=== PATIENT | female | born 1985 | race Two or more races ===

== ENCOUNTER 2017-10-19 05:42 | Inpatient (IN) | payer OTHER ==
[2017-10-19] MEDS ORDERED: EPSOM SALT 454 GM TP PRN (06:38)
[2017-10-19] MEDS ORDERED: MISOPROSTOL 200 MCG TAB PR PRN (06:38)
[2017-10-19] MEDS ORDERED: OXYTOCIN/RINGERS LACTATE 1,000 ML IV PRN (06:38)
[2017-10-19] MEDS ORDERED: OLIVE OIL 118 ML BTL MISC PRN (06:38)
[2017-10-19] MEDS ORDERED: IBUPROFEN 600 MG TAB PO PRN (06:38)
[2017-10-19] MEDS ORDERED: LR 1,000 ML IV PRN (06:38)
[2017-10-19] MEDS ORDERED: LIDOCAINE 1% 300 MG/30 ML SDV SC PRN (06:38)
[2017-10-19] MEDS ORDERED: TERBUTALINE SULFATE 1 MG/ML VIAL IV PRN (06:38)
[2017-10-19 06:59] LABS: PLATELET COUNT 202 10^3/uL (150-400)
[2017-10-19] MEDS ORDERED: LIDOCAINE 1% 300 MG/30 ML SDV ONE (07:47)
[2017-10-19] MEDS ORDERED: OLIVE OIL 118 ML BTL ONE (07:47)
[2017-10-19] MEDS ORDERED: AMMONIA AROMATIC 1 EACH AMP IH ONE (07:48)
[2017-10-19] MEDS ORDERED: MISOPROSTOL 200 MCG TAB ONE (07:48)
[2017-10-19] MEDS ORDERED: TERBUTALINE SULFATE 1 MG/ML VIAL ONE (07:48)
[2017-10-19] MEDS ORDERED: OXYTOCIN 10 UNIT/ML VIAL ONE (07:48)
--- NOTE | 2017-10-19 08:24 | PDGENHP ---
History and Physical History and Physical: CARE: [facility] HPI: Patient is a [id number] with IUP@40-6wks that presents to L&D for IOL. Li Balloon was placed 10/18/17, pt states she started lizbeth @0345. She denies any LOF, VB. Reports +FM. EDC: 10/13/17 which is based on LMP: 01/06/17 which is known and consistent with Ultrasound at 7 weeks. Her is complicated by: none Review of Systems: Constitutional: Denies any fever, chills, or fatigue HEENT: denies any visual changes, difficulty swallowing, hearing loss Cardiovascular: Denies any chest pain, palpitations, leg swelling Respiratory: denies any cough, wheezing, or shortness of breathe GI: Denies any nausea, vomiting, diarrhea, constipation : denies any dysuria, urgency, frequency, vaginal bleeding Musculoskeletal: denies any muscle or bone pain Skin: denies any rashes Neuro: denies any headache, seizures, lightheadedness, dizziness, or loss of consciousness Psychiatric: denies any depression, anxiety, or SI/HI thoughts HISTORY: Previous OB history: G1 Past medical history: noncontributory Past surgical history: none Medications: PNV Allergies (list reaction): NKDA LABS: Rh: O+ ABS: Neg Rubella: Immune HbsAg: NR HIV: NR VDRL: NR 1hr: 66 GC: Neg Chlamydia: Neg Pap: Normal GBS: negative BMI: (prepreg) 25 PHYSICAL EXAM: Constitutional: WN, A&Ox3 HEENT: normocephalic atraumatic, supple Heart: RRR, no murmur Chest: CTA-B Abdomen: Soft, nontender, gravid SVE: 450/-2 Extremities: trace edema, negative homans sign Neuro: grossly normal Psych: normal affect assessment: Reassuring FHTs, baseline 130 +accels, no decels, moderate variability Contractions: toco q 4-5min Assessment: 1) [id number] with IUP@40-6wks 2) PD IOL 3) GBS negative 4) Cat 1 FHR tracing Plan: 1) Admit to L&D 2) pitocin PRN 3) pain management PRN 4) anticipate
[2017-10-19] MEDS ORDERED: PHENYLEPHRINE HCL 100 MCG/ML SYR ONE (09:10)
[2017-10-19] MEDS ORDERED: BUPIVACAINE 0.25% 30 ML SDV ONE (09:10)
[2017-10-19] MEDS ORDERED: fentaNYL 100 MCG/2 ML INJ ONE (09:11)
[2017-10-19] MEDS ORDERED: fentaNYL 200 MCG, BUPIVACAINE 0.5% 20 ML in NS 100 ML EP SCH (09:30)
[2017-10-19] MEDS ORDERED: PHENYLEPHRINE HCL 100 MCG/ML SYR IVP PRN (11:09)
--- NOTE | 2017-10-19 11:11 | POSTANESTH ---
Post Anesthetic Evaluation Cardiovascular Status: Normal, Stable (BP stable after phenylephrine.), Similar to Pre-Op Cond Respiratory Status: Normal, Stable, Similar to Pre-op Cond. Level of Consciousness/Mental Status: Can Participate in Eval, Alert and Oriented Pain Control: Adequate, Prn Tx Ordered Nausea/Vomiting Control: Adequate, Prn Tx Ordered Complications Possibly Related to Anesthesia: None Noted
--- NOTE | 2017-10-19 11:15 | PREANESOB ---
Obstetric Pre-Anesthesia Info - General Info Proposed Procedure: Labor and delivery. : 1 Para: 0 ANTONIA: 10/13/17 Gestational Age: 40 week(s) and 6 day(s) - Info Status: Postmature Monitors: External FHR Baseline (bpm): 125 FHR Pattern: Reassuring - Labor Status Cervical Dilation per last OB SVE: 5 Indications for Labor Analgesia: Pain Control Labor Epidural: Proposed Anesthesia ROS: Negative. Allergies/Adverse Reactions: Allergy/AdvReac Type Severity Reaction Status Date / Time No Known Allergies Allergy Unverified 10/19/17 06:29 Visit Medications: Generic Name Dose Route Start Last Admin Trade Name Freq PRN Reason Stop Dose Admin Diphenhydramine HCl 25 - 50 mg 10/19/17 11:09 Benadryl Injection IVP 04/17/18 11:08 Q6HRS PRN Itching Lactated Ringer's 1,000 mls @ 0 mls/hr 10/19/17 06:38 Lr IV 10/20/17 06:37 PRN PRN SEE PROTOCOL CONDITIONS Protocol Per Protocol Oxytocin/Lactated Ringer's 1,000 mls @ 125 mls/hr 10/19/17 06:38 Pitocin 20 Units/Lr (Premix) IV PRN PRN Post bleeding Fentanyl 200 mcg/ Bupivacaine 100 mls @ 0 mls/hr 10/19/17 09:30 HCl 20 ml/ Sodium Chloride EP 10/29/17 09:29 CONT [facility] Protocol As Directed Fentanyl/Bupivacaine HCl 100 mls @ 0 mls/hr 10/19/17 11:30 Fentanyl/Bupivacaine/Ns 2 Mcg/Ml 0.1% (Premix EP 10/29/17 11:29 CONT JESU Protocol As Directed Lactated Ringer's 500 mls @ 0 mls/hr 10/19/17 11:30 Lr IV 04/17/18 11:29 CONT JESU As Directed Ibuprofen 600 mg 10/19/17 06:38 Motrin PO ONCE PRN post , pain Lidocaine HCl 300 mg 10/19/17 06:38 Lidocaine Hcl 1% SC 04/17/18 06:37 ONCE PRN episiotomy Magnesium Sulfate 454 gm 10/19/17 06:38 Epsom Salt TP 04/17/18 06:37 Q1H PRN perineal discomfort Misoprostol 800 - 1,000 mcg 10/19/17 06:38 Cytotec PA ONCE PRN Vaginal Atony/Bleeding Rolfe Oil 118 ml 10/19/17 06:38 Sweet Oil MISC 04/17/18 06:37 ONCE PRN perineal massage Ondansetron HCl 4 mg 10/19/17 11:09 Zofran IVP 10/20/17 11:08 Q4HRS PRN Nausea/Vomiting, Can't Take PO Phenylephrine HCl 100 mcg 10/19/17 11:09 Neosynephrine IVP 04/17/18 11:08 .Q2M PRN Hypotension Terbutaline Sulfate 0.25 mg 10/19/17 06:38 Brethine IV 04/17/18 06:37 ONCE PRN Tachysystole Discontinued Medications Generic Name Dose Route Start Last Admin Trade Name Freq PRN Reason Stop Dose Admin Ammonia (Aromatic Spirit) Confirm 10/19/17 07:48 Ammonia Aromatic Administered 10/19/17 07:49 Dose 1 each IH .STK-MED ONE Bupivacaine HCl Confirm 10/19/17 09:10 Sensorcaine 0.25% Sdv Administered 10/19/17 09:11 Dose 30 ml .ROUTE .STK-MED ONE Fentanyl Confirm 10/19/17 09:11 Sublimaze Administered 10/19/17 09:12 Dose 100 mcg .ROUTE .STK-MED ONE Lidocaine HCl Confirm 10/19/17 07:47 Lidocaine Hcl 1% Administered 10/19/17 07:48 Dose 300 mg .ROUTE .STK-MED ONE Misoprostol Confirm 10/19/17 07:48 Cytotec Administered 10/19/17 07:49 Dose 1,000 mcg .ROUTE .STK-MED ONE Rolfe Oil Confirm 10/19/17 07:47 Sweet Oil Administered 10/19/17 07:48 Dose 118 ml .ROUTE .STK-MED ONE Oxytocin Confirm 10/19/17 07:48 Pitocin Administered 10/19/17 07:49 Dose 40 unit .ROUTE .STK-MED ONE Phenylephrine HCl Confirm 10/19/17 09:10 Neosynephrine Administered 10/19/17 09:11 Dose 1,000 mcg .ROUTE .STK-MED ONE Terbutaline Sulfate Confirm 10/19/17 07:48 Brethine Administered 10/19/17 07:49 Dose 1 mg .ROUTE .STK-MED ONE - Anesthesia History Response to Local Anesthetics: Normal Anesthesia & Operative History: No Prior Problems Family Anesthesia History: Negative - Social History Substance Use/Abuse: Denies - Vital Signs Blood Pressure: 116/77 Heart Rate: 82 Height/Weight (Nursing): Height 157.48 cm Weight 72.575 kg - Focused Exam Neck exam: FROM Mallampati Score: Class 1 Mouth exam: normal dental/mouth exam Pulmonary: no respiratory distress Cardiovascular: regular rate and rhythym Labs: 10/19/17 06:45 Patient ABO/Rh O POSITIVE 10/19/17 06:45 - Plan Anesthetic Plan: CEDRICK Consent Signed and on Chart: Yes Patient/Guardian Understands and Agrees to Plan: Yes Urgent/Emergent Case: Gina kong completed preop but documented later for safe timely pt care
[2017-10-19] MEDS ORDERED: fentaNYL 2MCG/ML/BUP 0.1% RTU 100 ML EP SCH (11:30)
[2017-10-19] MEDS ORDERED: LR 500 ML IV SCH (11:30)
[2017-10-19] MEDS ORDERED: LR 500 ML IV PRN (12:44)
[2017-10-19] MEDS ORDERED: OXYTOCIN/RINGERS LACTATE 500 ML IV SCH (13:00)
[2017-10-19] MEDS ORDERED: D5W LR 1,000 ML IV SCH (13:45)
--- NOTE | 2017-10-19 13:47 | OBPROG ---
Labor Progress Note Assessment/Plan: Assessment: [id number] with IUP@40-6wks GBS Negative IOL cat 1 FHR Tracing Plan: cont pit PRN reassess 2-4hr/PRN anticipate 10/19/17 13:45 Subjective/Intrapartum Course: 10/19/17 13:46 Pt doing well, she denies any pain. She is comfortable with CEDRICK. SONIDO Jonas, at BS and supportive. Objective: 10/19/17 06:45 Patient ABO/Rh O POSITIVE 10/19/17 06:45 Temp Pulse Resp BP Pulse Ox 82 116/77 10/19/17 11:25 10/19/17 11:25 - SVE Dilation (cm): 6 Effacement (%): 50 Station: -2 Membranes: SROM Amniotic Fluid Color: Clear - Contraction Pattern Assessment Current Contraction Pattern: Regular - FHR Assessment Ferrer FHR Category: 1 Oxytocin Orders Assessment - Pre-Induction/Augmentation Assessment Gestational Age: 40 week(s) and 6 day(s) ICD10 Worksheet Patient Problems: Problems Problem Status Onset Encounter for induction of labor Acute Post-dates Acute - ICD10 Problem Qualifiers (1) Post-dates (2) Encounter for induction of labor
[2017-10-19] MEDS: ONDANSETRON 4 MG/2 ML VIAL IVP PRN ×2 (14:32→20:38)
--- NOTE | 2017-10-19 18:38 | OBPROG ---
Labor Progress Note Assessment/Plan: Assessment: [id number] with IUP@40-6wks GBS Negative IOL cat 1 FHR Tracing Plan: start pitocin PRN reassess 2-4hr/PRN anticipate Subjective/Intrapartum Course: 10/19/17 11:15 Pt doing well, comfortable with CEDRICK. She denies any pain or pressure. Pritesh @ BS - supportive. 10/19/17 13:46 Pt doing well, she denies any pain. She is comfortable with CEDRICK. SONIDO Jonas, at BS and supportive. Objective: 10/19/17 06:45 Patient ABO/Rh O POSITIVE 10/19/17 06:45 Temp Pulse Resp BP Pulse Ox 82 116/77 10/19/17 11:25 10/19/17 11:25 - SVE Dilation (cm): 5 Effacement (%): 50 Station: -2 Membranes: SROM Amniotic Fluid Color: Clear - Contraction Pattern Assessment Current Contraction Pattern: Regular - FHR Assessment Ferrer FHR (bpm): 135 FHR Pattern Variability: Moderate FHR Category: 1 Oxytocin Orders Assessment - Pre-Induction/Augmentation Assessment Gestational Age: 40 week(s) and 6 day(s) ICD10 Worksheet Patient Problems: Problems Problem Status Onset Encounter for induction of labor Acute Post-dates Acute - ICD10 Problem Qualifiers (1) Post-dates (2) Encounter for induction of labor
--- NOTE | 2017-10-19 18:42 | OBPROG ---
Labor Progress Note Assessment/Plan: Assessment: [id number] with IUP@40-6wks GBS Negative IOL cat 1 FHR Tracing Plan: continue pitocin augmentation reassess 2-4hr/PRN anticipate Subjective/Intrapartum Course: 10/19/17 11:15 Pt doing well, comfortable with CEDRICK. She denies any pain or pressure. Pritesh @ BS - supportive. 10/19/17 13:46 Pt doing well, she denies any pain. She is comfortable with CEDRICK. SONIDO Jonas, at BS and supportive. 10/19/17 15:30 Pt doing well, having intermittent pain with contractions- will use bolus button. Has been able to rest. Been rotating right and left lateral. Objective: 10/19/17 06:45 Patient ABO/Rh O POSITIVE 10/19/17 06:45 Temp Pulse Resp BP Pulse Ox 82 116/77 10/19/17 11:25 10/19/17 11:25 - SVE Dilation (cm): 7 Effacement (%): 80 Station: -1 Membranes: SROM Amniotic Fluid Color: Clear - Contraction Pattern Assessment Current Contraction Pattern: Regular - FHR Assessment Ferrer FHR (bpm): 135 FHR Pattern Variability: Moderate FHR Category: 1 Oxytocin Orders Assessment - Pre-Induction/Augmentation Assessment Gestational Age: 40 week(s) and 6 day(s) ICD10 Worksheet Patient Problems: Problems Problem Status Onset Encounter for induction of labor Acute Post-dates Acute - ICD10 Problem Qualifiers (1) Post-dates (2) Encounter for induction of labor
--- NOTE | 2017-10-19 18:44 | OBPROG ---
Labor Progress Note Assessment/Plan: Assessment: [id number] with IUP@40-6wks GBS Negative IOL cat 1 FHR Tracing Plan: continue pitocin augmentation reassess 2-4hr/PRN anticipate Subjective/Intrapartum Course: 10/19/17 11:15 Pt doing well, comfortable with CEDRICK. She denies any pain or pressure. Pritesh @ BS - supportive. 10/19/17 13:46 Pt doing well, she denies any pain. She is comfortable with CEDRICK. SONIDO Jonas, at BS and supportive. 10/19/17 15:30 Pt doing well, having intermittent pain with contractions- will use bolus button. Has been able to rest. Been rotating right and left lateral. 10/19/17 18:00 Pt doing well, feels a little discouraged that things are not progressing quicker. She is able to rest. Having occasional vaginal pressure, no rectal pressure. Comfortable after hitting CEDRICK bolus button. Objective: 10/19/17 06:45 Patient ABO/Rh O POSITIVE 10/19/17 06:45 Temp Pulse Resp BP Pulse Ox 82 116/77 10/19/17 11:25 10/19/17 11:25 - SVE Dilation (cm): 9 Effacement (%): 90 Station: -1 Membranes: SROM Amniotic Fluid Color: Clear - Contraction Pattern Assessment Current Contraction Pattern: Regular - FHR Assessment Ferrer FHR (bpm): 135 (variables noted) FHR Pattern Variability: Moderate FHR Category: 2 Oxytocin Orders Assessment - Pre-Induction/Augmentation Assessment Gestational Age: 40 week(s) and 6 day(s) ICD10 Worksheet Patient Problems: Problems Problem Status Onset Encounter for induction of labor Acute Post-dates Acute - ICD10 Problem Qualifiers (1) Post-dates (2) Encounter for induction of labor
--- NOTE | 2017-10-19 20:50 | OBPROG ---
Labor Progress Note Assessment/Plan: Assessment: [id number] with IUP@40-6wks GBS Negative protracted labor cat 1 FHR Tracing Plan: IUPC placed at this time continue pitocin augmentation reassess 2hr/PRN anticipate 10/19/17 20:50 Subjective/Intrapartum Course: 10/19/17 11:15 Pt doing well, comfortable with CEDRICK. She denies any pain or pressure. Pritesh @ BS - supportive. 10/19/17 13:46 Pt doing well, she denies any pain. She is comfortable with CEDRICK. SONIDO Jonas, at BS and supportive. 10/19/17 15:30 Pt doing well, having intermittent pain with contractions- will use bolus button. Has been able to rest. Been rotating right and left lateral. 10/19/17 18:00 Pt doing well, feels a little discouraged that things are not progressing quicker. She is able to rest. Having occasional vaginal pressure, no rectal pressure. Comfortable after hitting CEDRICK bolus button. 10/19/17 20:50 Pt doing ok. feeling lots of back pain. she denies any pressure. Objective: 10/19/17 06:45 Patient ABO/Rh O POSITIVE 10/19/17 06:45 Temp Pulse Resp BP Pulse Ox 82 116/77 10/19/17 11:25 10/19/17 11:25 - SVE Dilation (cm): 9 Effacement (%): 90 Station: -1 Membranes: SROM Amniotic Fluid Color: Clear - Contraction Pattern Assessment Current Contraction Pattern: Regular - FHR Assessment Ferrer FHR (bpm): 135 FHR Pattern Variability: Moderate FHR Category: 1 - Procedures Non-surgical Procedures: IUPC Oxytocin Orders Assessment - Pre-Induction/Augmentation Assessment Gestational Age: 40 week(s) and 6 day(s) ICD10 Worksheet Patient Problems: Problems Problem Status Onset Encounter for induction of labor Acute Post-dates Acute - ICD10 Problem Qualifiers (1) Post-dates (2) Encounter for induction of labor
[2017-10-20] MEDS ORDERED: LIDO/EPI 2% **for epidural** 20 ML SDV ONE (02:27)
[2017-10-20] MEDS ORDERED: LR 500 ML IV ONE (02:27)
[2017-10-20] MEDS ORDERED: ceFAZolin 2 GM/DEXTROSE 100 ML IV ONE (02:27)
[2017-10-20] MEDS ORDERED: CITRIC ACID/SODIUM CITRATE 30 ML UDCUP ONE (02:27)
--- NOTE | 2017-10-20 02:27 | PDCONSULT ---
Rehab Specialist Note: I was consulted by Lorenza Carlton CNM regarding Danitza's protracted 2nd stage of labor. Reviewed course with Lorenza and the patient as well as her . I did have a discussion with them and repeated an exam. Moderate caput at +1/+ 2 but the bones do feel like they're at 0 station. Feels asynclitic and OT. Lorenza had already discussed RBA with them and I reviewed those quickly. Offered that OVD from below an option but I wouldn't recommend vacuum or forceps in this situation. Will proceed with , routine orders. Weight- based Ancef. JM
--- NOTE | 2017-10-20 02:27 | SUROPNOTE ---
[facility] Operative Report - Surgery Date of Operation: 10/20/17 Surgeon: Renaldo Burgess Shot Man: Lorenza Carlton CNM Anesthesiologist: Rubi Nguyen Anesthesia: Epidural Pre-op Diagnosis: Arrest of descent Post-op Diagnosis: Same Procedure: Primary low-transverse section Findings: Vigorous baby boy, grossly normal placenta and cord Inf/Abcess present in the surg proc area at time of surgery?: No EBL: 1300cc Complications: None Specimen(s): Cord blood gasses sent, placenta not sent. Technique:
--- NOTE | 2017-10-20 02:28 | OBDEL ---
Info Type: Primary Presentation at Delivery: Vertex L&D Analgesia/Anesthesia Type: Epidural GBS+: No Intrapartum Medications: Generic Name Dose Route Start Last Admin Trade Name Yulia PRN Reason Stop Dose Admin Fentanyl 200 mcg/ Bupivacaine 100 mls @ 0 mls/hr 10/19/17 09:30 10/20/17 02: 04 HCl 20 ml/ Sodium Chloride EP 10/29/17 09:29 100 mls CONT JESU Administration Protocol As Directed Oxytocin/Lactated Ringer's 500 mls @ 0 mls/hr 10/19/17 13:00 10/19/17 13:26 Pitocin 30 Units/Lr (Premix) IV 04/17/18 12:59 500 mls CONT JESU Administration Protocol Per Protocol Dextrose/Lactated Ringer's 1,000 mls @ 150 mls/hr 10/19/17 13:45 10/19/17 13: 44 D5w Lr IV 04/17/18 13:44 1,000 mls CONT JESU Administration Ondansetron HCl 4 mg 10/19/17 11:09 10/19/17 20:38 Zofran IVP 10/20/17 11:08 4 mg Q4HRS PRN Administration Nausea/Vomiting, Can't Take PO - Hospital Course Intrapartum: 10/19/17 11:15 Pt doing well, comfortable with CEDRICK. She denies any pain or pressure. Pritesh @ BS - supportive. 10/19/17 13:46 Pt doing well, she denies any pain. She is comfortable with CEDRICK. SONIDO Jonas, at BS and supportive. 10/19/17 15:30 Pt doing well, having intermittent pain with contractions- will use bolus button. Has been able to rest. Been rotating right and left lateral. 10/19/17 18:00 Pt doing well, feels a little discouraged that things are not progressing quicker. She is able to rest. Having occasional vaginal pressure, no rectal pressure. Comfortable after hitting CEDRICK bolus button. 10/19/17 20:50 Pt doing ok. feeling lots of back pain. she denies any pressure. Indications for Delivery: Postterm Unfavorable Cervix (Post-dates IOL ) Vaginal Delivery - Labor and Delivery Onset of Contractions Date: 10/19/17 Onset of Contractions Time: 03:30 Amniotic Fluid Color: Clear Non-surgical Procedures: IUPC Operative Report - Delivery Pre-op Diagnoses: Arrest of descent Post-op Diagnoses: Same History of Prior Section: No Nulliparous Prior to Delivery: No Indications for Current Section: Arrest of Descent Procedure: Unscheduled Surgeon: Renaldo Burgess Insole Doubler: Lorenza Carlton Complications: Post Hemorrhage (1300cc, Methergine given into the uterus intraop) Findings: Baby boy, grossly normal placenta and cord, normal tubes and ovaries EBL: 1300cc Cord Gases: Sent [place] Data ANTONIA: 10/13/17 Gestational Age: 41 week(s) and 0 day(s) Ferrer Delivery Date: 10/20/17 Delivery Time: 03:07 Sex of Infant: Male (Jalen) Score (1 Min): 8 Score (5 Min): 9 ICD10 Worksheet Patient Problems: Problems Problem Status Onset Arrest of descent, delivered, current hospitalization Acute Encounter for induction of labor Acute Post-dates Acute S/P primary low transverse Acute - ICD10 Problem Qualifiers (1) Arrest of descent, delivered, current hospitalization (2) S/P primary low transverse
[2017-10-20] MEDS ORDERED: CITRIC ACID/SODIUM CITRATE 30 ML UDCUP PO ONE (02:29)
[2017-10-20] MEDS ORDERED: LR 1,000 ML IV SCH ×2 (02:30→04:30)
--- NOTE | 2017-10-20 02:43 | OBPROG ---
Labor Progress Note Assessment/Plan: Assessment: [id number] with IUP@40-6wks GBS Negative protracted labor cat 1 FHR Tracing Plan: Cont pitocin will labor down, attempt pushing after 1hr notified Dr Burgess of protracted labor and minimal descent with initial pushing Subjective/Intrapartum Course: 10/19/17 11:15 Pt doing well, comfortable with CEDRICK. She denies any pain or pressure. Pritesh @ BS - supportive. 10/19/17 13:46 Pt doing well, she denies any pain. She is comfortable with CEDRICK. Pritesh, SONIDO, at BS and supportive. 10/19/17 15:30 Pt doing well, having intermittent pain with contractions- will use bolus button. Has been able to rest. Been rotating right and left lateral. 10/19/17 18:00 Pt doing well, feels a little discouraged that things are not progressing quicker. She is able to rest. Having occasional vaginal pressure, no rectal pressure. Comfortable after hitting CEDRICK bolus button. 10/19/17 20:50 Pt doing ok. feeling lots of back pain. she denies any pressure. 10/19/17 23:55 Pt doing ok, reports feeling discouraged about progress. She is feeling some pressure in vagina, reports increasing left lower back pain. CEDRICK in place- self bolus given Objective: 10/19/17 06:45 Patient ABO/Rh O POSITIVE 10/19/17 06:45 Temp Pulse Resp BP Pulse Ox 36.8 C 85 16 106/60 98 10/20/17 01:51 10/20/17 01:51 10/20/17 01:51 10/20/17 01:51 10/20/17 01:51 - SVE Dilation (cm): 10 Effacement (%): 100 Station: -1 Membranes: SROM Amniotic Fluid Color: Clear - Contraction Pattern Assessment Current Contraction Pattern: Regular - Procedures Non-surgical Procedures: IUPC Oxytocin Orders Assessment - Pre-Induction/Augmentation Assessment Gestational Age: 40 week(s) and 6 day(s) ICD10 Worksheet Patient Problems: Problems Problem Status Onset Encounter for induction of labor Acute Post-dates Acute - ICD10 Problem Qualifiers (1) Post-dates (2) Encounter for induction of labor
--- NOTE | 2017-10-20 02:46 | OBPROG ---
Labor Progress Note Assessment/Plan: Assessment: [id number] with IUP@40-6wks GBS Negative arrest of descent cat 1 FHR Tracing Plan: Dr Burgess notified of arrest of labor Pt consented on C/S B/R/A pt agrees with plan of care will proceed with C/s at this time 10/20/17 02:15 Subjective/Intrapartum Course: 10/19/17 11:15 Pt doing well, comfortable with CEDRICK. She denies any pain or pressure. Pritesh @ BS - supportive. 10/19/17 13:46 Pt doing well, she denies any pain. She is comfortable with CEDRICK. SONIDO Jonas, at BS and supportive. 10/19/17 15:30 Pt doing well, having intermittent pain with contractions- will use bolus button. Has been able to rest. Been rotating right and left lateral. 10/19/17 18:00 Pt doing well, feels a little discouraged that things are not progressing quicker. She is able to rest. Having occasional vaginal pressure, no rectal pressure. Comfortable after hitting CEDRICK bolus button. 10/19/17 20:50 Pt doing ok. feeling lots of back pain. she denies any pressure. 10/19/17 23:55 Pt doing ok, reports feeling discouraged about progress. She is feeling some pressure in vagina, reports increasing left lower back pain. CEDRICK in place- self bolus given Objective: 10/19/17 06:45 Patient ABO/Rh O POSITIVE 10/19/17 06:45 Temp Pulse Resp BP Pulse Ox 36.8 C 85 16 106/60 98 10/20/17 01:51 10/20/17 01:51 10/20/17 01:51 10/20/17 01:51 10/20/17 01:51 - SVE Dilation (cm): 10 Effacement (%): 100 Station: 0 Membranes: SROM Amniotic Fluid Color: Clear - Contraction Pattern Assessment Current Contraction Pattern: Regular - Procedures Non-surgical Procedures: IUPC Oxytocin Orders Assessment - Pre-Induction/Augmentation Assessment Gestational Age: 40 week(s) and 6 day(s) ICD10 Worksheet Patient Problems: Problems Problem Status Onset Encounter for induction of labor Acute Post-dates Acute - ICD10 Problem Qualifiers (1) Post-dates (2) Encounter for induction of labor
[2017-10-20] MEDS ORDERED: METHYLERGONOVINE MAL 0.2 MG/ML INJ ONE (03:15)
[2017-10-20] MEDS ORDERED: ONDANSETRON 4 MG/2 ML VIAL ONE (03:16)
[2017-10-20] MEDS ORDERED: PHENYLEPHRINE HCL 100 MCG/ML SYR ONE (03:17)
[2017-10-20] MEDS ORDERED: morphINE PF 5 MG/10 ML INJ ONE (03:37)
[2017-10-20] MEDS ORDERED: KETOROLAC 30 MG/1 ML SDV ONE (03:50)
[2017-10-20] MEDS ORDERED: PHENYLEPHRINE HCL 100 MCG/ML SYR IVP PRN (04:02)
[2017-10-20] MEDS ORDERED: OXYCODONE/APAP 5/325 TAB PO PRN (04:02)
[2017-10-20] MEDS ORDERED: NALOXONE HCL 0.4 MG/ML INJ IVP PRN ×2 (04:02)
[2017-10-20] MEDS ORDERED: fentaNYL 100 MCG/2 ML INJ IVP PRN (04:02)
[2017-10-20] MEDS ORDERED: ACETAMINOPHEN 325 MG TAB PO PRN (04:07)
[2017-10-20] MEDS ORDERED: HYDROCODONE/APAP 5/325 TAB PO PRN (04:07)
[2017-10-20] MEDS ORDERED: SIMETHICONE 80 MG TAB CHEW PO PRN (04:07)
[2017-10-20] MEDS ORDERED: DOCUSATE SODIUM 100 MG CAP PO PRN (04:07)
[2017-10-20] MEDS ORDERED: PROMETHAZINE HCL 25 MG/ML INJ IVP PRN (04:07)
--- NOTE | 2017-10-20 04:08 | POSTANESTH ---
Post Anesthetic Evaluation Cardiovascular Status: Tx Over/Under Hydration (Pt needs additional IVF. 1 liter LR bolus ordered for PACU.) Respiratory Status: Normal, Stable Level of Consciousness/Mental Status: Can Participate in Eval, Alert and Oriented Pain Control: Adequate, Prn Tx Ordered Nausea/Vomiting Control: Adequate, Prn Tx Ordered Complications Possibly Related to Anesthesia: Other, See Comments (Pt still shaking, feels tired. Nausea resolved.)
[2017-10-20] MEDS: KETOROLAC 30 MG/1 ML SDV IVP SCH ×3 (16:32→22:29)
--- NOTE | 2017-10-20 17:30 | OBPP ---
Progress Note Assessment/Plan: Assessment: s/p 1LTCS secondary to AOD POD #0.5 - pt is stable Plan: Continue routine post-op care H/H in am 6/10/20/17 17:30 Subjective/ Course: 10/20/17 17:28 Pt seen and examined. Sitting at the side of the bed eating some fruit. Feeling good, pain is well controlled. Denies any f/c/n/v/CP or SOB. Denies any excessive bleeding, no clots. Working on BF. Li in place. Objective: 10/19/17 06:45 Patient ABO/Rh O POSITIVE 10/19/17 06:45 Temp Pulse Resp BP Pulse Ox 37.3 C 83 16 112/74 96 10/20/17 08:00 10/20/17 08:00 10/20/17 08:00 10/20/17 08:00 10/20/17 08:00 Uterine Position/Fundal Height: Umbilicus -1 Uterine Tone: Firm Physical Exam - Physical Exam General Appearance: WD/WN, alert, no apparent distress Respiratory: lungs clear, normal breath sounds Cardiac/Chest: regular rate, rhythm Abdomen: normal bowel sounds, non-tender, soft, incision (C/D/I with dressing in place), dressing (C/D/I) Extremities: non-tender, normal inspection Skin: normal color, warm/dry Neuro/Psych: alert, normal mood/affect, oriented x 3
[2017-10-20] MEDS: IRON POLYSAC/IRON HEME 28 MG TAB PO SCH (22:29)
[2017-10-21] MEDS: KETOROLAC 30 MG/1 ML SDV IVP SCH ×2 (04:25→10:47)
[2017-10-21] MEDS: IRON POLYSAC/IRON HEME 28 MG TAB PO SCH ×2 (09:22→22:32)
--- NOTE | 2017-10-21 10:54 | OBPP ---
Progress Note Assessment/Plan: Assessment: 32 y/o s/p primary - failure to descend. POD #1 Plan: Routine PP/post op care Encourage ambulation 10/21/17 10:54 Subjective/ Course: 10/20/17 17:28 Pt seen and examined. Sitting at the side of the bed eating some fruit. Feeling good, pain is well controlled. Denies any f/c/n/v/CP or SOB. Denies any excessive bleeding, no clots. Working on BF. Li in place. 10/21/17 10:51 Doing well today. going fine. Pain well controlled - tolerating regular diet and ambulating in room. Passing gas. Voiding. Vag bleeding is WNL - no clots. Denies f/c/n/v/CP or SOB. 10/21/17 10:56 Objective: 10/19/17 06:45 Patient ABO/Rh O POSITIVE 10/19/17 06:45 Temp Pulse Resp BP Pulse Ox 36.7 C 89 16 98/56 L 95 10/21/17 00:35 10/21/17 00:35 10/21/17 00:35 10/21/17 00:35 10/21/17 00:35 Uterine Position/Fundal Height: At Umbilicus Uterine Tone: Firm Physical Exam - Physical Exam EENT: PERRL/EOMI Neck: non-tender Respiratory: normal breath sounds Cardiac/Chest: regular rate, rhythm, edema (mod pedal/low ext edema) Abdomen: hypoactive bowel sounds, incision (well approximated - healing well) Extremities: normal range of motion Back: Normal inspection Skin: normal color Neuro/Psych: no motor/sensory deficits, alert, normal mood/affect, oriented x 3
[2017-10-21 12:48] LABS: PLATELET COUNT 181 10^3/uL (150-400)
[2017-10-21] MEDS ORDERED: MAGNESIUM HYDROXIDE 30 ML UDCUP PO PRN (21:44)
[2017-10-21] MEDS ORDERED: POLYETHYLENE GLYCOL 3350 17 GM PKT PO PRN (21:44)
[2017-10-21] MEDS ORDERED: BISACODYL 10 MG SUPP PR PRN (21:44)
[2017-10-21] MEDS: SENNOSIDES/DOCUSATE SODIUM TAB PO SCH (22:32)
[2017-10-22] MEDS: IBUPROFEN 600 MG TAB PO PRN ×4 (00:05→18:40)
[2017-10-22] MEDS: SENNOSIDES/DOCUSATE SODIUM TAB PO SCH ×2 (09:36→21:10)
[2017-10-22] MEDS: IRON POLYSAC/IRON HEME 28 MG TAB PO SCH ×2 (09:36→21:10)
--- NOTE | 2017-10-22 11:40 | OBPP ---
Progress Note Assessment/Plan: Assessment: 1) s/p 1LTCS secondary to AOD POD #2 - pt is stable 2) Anemia - on Bifera, asymptomatic Plan: Continue routine post-op care Encourage ambulation Plan for d/c home in am 10/2310/22/17 11:41 Subjective/ Course: 10/20/17 17:28 Pt seen and examined. Sitting at the side of the bed eating some fruit. Feeling good, pain is well controlled. Denies any f/c/n/v/CP or SOB. Denies any excessive bleeding, no clots. Working on BF. Li in place. 10/21/17 10:51 Doing well today. going fine. Pain well controlled - tolerating regular diet and ambulating in room. Passing gas. Voiding. Vag bleeding is WNL - no clots. Denies f/c/n/v/CP or SOB. 10/22/17 11:41 Pt seen and examined. Doing well, no complaints. Pt just got out of the shower. Pain is well controlled. She is OOB, avinash regular diet, voiding and passing flatus. No BM yet. Mod lochia. Denies any f/c/n/v/CP or SOB. BF is going well. Objective: 10/21/17 12:30 Patient ABO/Rh O POSITIVE 10/19/17 06:45 Temp Pulse Resp BP Pulse Ox 36 C 74 18 113/82 H 95 10/22/17 09:41 10/22/17 09:41 10/21/17 20:10 10/22/17 09:41 10/22/17 09:41 Uterine Position/Fundal Height: Umbilicus -2 Uterine Tone: Firm Physical Exam - Physical Exam General Appearance: WD/WN, alert, no apparent distress Respiratory: lungs clear, normal breath sounds Cardiac/Chest: regular rate, rhythm Abdomen: normal bowel sounds, non-tender, soft, flatus (+), incision (C/D/I, well approximated) Extremities: non-tender, normal inspection Skin: normal color, warm/dry Neuro/Psych: alert, normal mood/affect, oriented x 3
[2017-10-23] MEDS: IBUPROFEN 600 MG TAB PO PRN ×3 (00:41→12:25)
[2017-10-23 11:34] VITALS: BP 101/72
--- NOTE | 2017-10-23 12:20 | OBGCSDC ---
General Delivery Information - General Info : 1 Para: 1 Abortions: 0 Type: Primary L&D Analgesia/Anesthesia Type: Epidural Admission Date: 10/19/17 Labs: Patient ABO/Rh O POSITIVE 10/19/17 06:45 Hct 25.8 % (38.0-47.0) L 10/21/17 12:30 - Hospital Course Intrapartum: 10/19/17 11:15 Pt doing well, comfortable with CEDRICK. She denies any pain or pressure. Pritesh @ BS - supportive. 10/19/17 13:46 Pt doing well, she denies any pain. She is comfortable with CEDRICK. SONIDO Jonas, at BS and supportive. 10/19/17 15:30 Pt doing well, having intermittent pain with contractions- will use bolus button. Has been able to rest. Been rotating right and left lateral. 10/19/17 18:00 Pt doing well, feels a little discouraged that things are not progressing quicker. She is able to rest. Having occasional vaginal pressure, no rectal pressure. Comfortable after hitting CEDRICK bolus button. 10/19/17 20:50 Pt doing ok. feeling lots of back pain. she denies any pressure. : 10/20/17 17:28 Pt seen and examined. Sitting at the side of the bed eating some fruit. Feeling good, pain is well controlled. Denies any f/c/n/v/CP or SOB. Denies any excessive bleeding, no clots. Working on BF. Li in place. 10/21/17 10:51 Doing well today. going fine. Pain well controlled - tolerating regular diet and ambulating in room. Passing gas. Voiding. Vag bleeding is WNL - no clots. Denies f/c/n/v/CP or SOB. 10/22/17 11:41 Pt seen and examined. Doing well, no complaints. Pt just got out of the shower. Pain is well controlled. She is OOB, avinash regular diet, voiding and passing flatus. No BM yet. Mod lochia. Denies any f/c/n/v/CP or SOB. BF is going well. 10/23/17 12:17 Pt is doing well this am. She has good pain control with only Ibuprofen. She is ambulating, voiding without difficulty and has had a + BM. Min lochia, breast feeding well and her nipples are good. She is ready to d/c home. Vaginal - Diagnosis Amniotic Fluid Color: Clear - Procedures Non-surgical Procedures: IUPC - Delivery Providers Surgeon: Renaldo Burgess Repair Servicer: Lorenza Carlton - Delivery Indications for Current Section: Arrest of Descent Non-surgical Procedures: IUPC Surgical Procedures: Unscheduled Intra-op Complications: Post Hemorrhage (1300cc, Methergine given into the uterus intraop) EBL: 1300cc Data ANTONIA: 10/13/17 Gestational Age: 41 week(s) and 3 day(s) Ferrer Delivery Date: 10/20/17 Delivery Time: 03:07 Sex of Infant: Male (Jalen) Weight (gm): 3374 g Score (1 Min): 8 Score (5 Min): 9 Discharge Information - Discharge Information Prescriptions: Hydrocodone/APAP 5/325 [[place] 5/325 (*)] 1 - 2 tab PO Q4HRS PRN #10 tab PRN Reason: Pain, Moderate Ibuprofen [Motrin (*)] 600 mg PO Q6HRS PRN #30 tab PRN Reason: Pain, Mild Iron Polysacch/Iron Heme Polyp [Bifera] 28 mg PO BID #60 tab Condition: Good Instruction/Follow Up: Two Weeks, Four Weeks, Six Weeks
--- NOTE | 2017-10-23 12:20 | OBPP ---
Progress Note Assessment/Plan: Assessment: 32 y/o POD #3 s/p LTCS doing well. Plan: D/c home today with Rx Ibuprofen and [place] prn. Follow-up @ [facility] 2, 4 and 6 weeks. 10/23/17 12:19 Subjective/ Course: 10/20/17 17:28 Pt seen and examined. Sitting at the side of the bed eating some fruit. Feeling good, pain is well controlled. Denies any f/c/n/v/CP or SOB. Denies any excessive bleeding, no clots. Working on BF. Li in place. 10/21/17 10:51 Doing well today. going fine. Pain well controlled - tolerating regular diet and ambulating in room. Passing gas. Voiding. Vag bleeding is WNL - no clots. Denies f/c/n/v/CP or SOB. 10/22/17 11:41 Pt seen and examined. Doing well, no complaints. Pt just got out of the shower. Pain is well controlled. She is OOB, avinash regular diet, voiding and passing flatus. No BM yet. Mod lochia. Denies any f/c/n/v/CP or SOB. BF is going well. 10/23/17 12:17 Pt is doing well this am. She has good pain control with only Ibuprofen. She is ambulating, voiding without difficulty and has had a + BM. Min lochia, breast feeding well and her nipples are good. She is ready to d/c home. Objective: 10/21/17 12:30 Patient ABO/Rh O POSITIVE 10/19/17 06:45 Temp Pulse Resp BP Pulse Ox 36.8 C 76 20 101/72 96 10/23/17 09:00 10/23/17 09:00 10/22/17 20:00 10/23/17 09:00 10/23/17 09:00 Uterine Position/Fundal Height: Umbilicus -2 Uterine Tone: Firm Physical Exam - Physical Exam General Appearance: alert, no apparent distress Neck: non-tender, full range of motion, supple Respiratory: chest non-tender, lungs clear, normal breath sounds Cardiac/Chest: regular rate, rhythm Abdomen: normal bowel sounds, incision (c/d/i) Extremities: swelling (no), Piyush's sign (neg)
[2017-10-23] MEDS: IRON POLYSAC/IRON HEME 28 MG TAB PO SCH (12:38)
[2017-10-23] MEDS: SENNOSIDES/DOCUSATE SODIUM TAB PO SCH (14:26)
== END 2017-10-23 13:30 | disposition home or self-care (01) | DRG 765 ==
LOC: FLD 05:42 → FOB 10-20 06:22
PROVIDERS: ADMIT Obstetrics & Gynecology; ATTEND Obstetrics & Gynecology
PROC: 3E033VJ Introduction of Other Hormone into Peripheral Vein, Percutaneous Approach (ICD-10-PCS; 2017-10-19)
PROC: 10H073Z Insertion of Monitoring Electrode into Products of Conception, Via Natural or Artificial Opening (ICD-10-PCS; 2017-10-19)
PROC: 10D00Z1 Extraction of Products of Conception, Low, Open Approach (ICD-10-PCS; principal; 2017-10-20)
DX: O32.4XX0 Maternal care for high head at term, not applicable or unspecified (principal); O72.1 Other immediate postpartum hemorrhage; O63.1 Prolonged second stage (of labor); O61.0 Failed medical induction of labor; O90.81 Anemia of the puerperium; O48.0 Post-term pregnancy; Z3A.41 41 weeks gestation of pregnancy; Z37.0 Single live birth
CPT/HCPCS: J0690; J1885; J2210; J2274; J2370; J2405; J2590; J3010; J3105